=== PATIENT | male | born 1980 ===

== ENCOUNTER 2024-01-15 17:20 | Inpatient (IN) | payer BC ==
[~2024-01-15 17:20] MED LIST: LORazepam 2 MG/ML INJ ONE
[2024-01-15] MEDS ORDERED: LORazepam 2 MG/ML INJ ONE ×2 (21:31→23:11)
[2024-01-15] MEDS ORDERED: METOPROLOL TARTRATE 50 MG TAB ONE (21:33)
[2024-01-16] MEDS ORDERED: LORazepam 2 MG/ML INJ ONE ×9 (01:08→15:45)
[2024-01-16] MEDS ORDERED: chlordiazePOXIDE 25 MG CAP ONE ×2 (02:20→12:12)
[2024-01-16] MEDS ORDERED: MULTIVITAMINS, THERA 1 EACH TAB ONE (08:32)
[2024-01-16] MEDS ORDERED: lisinopriL 10 MG TAB ONE (08:33)
[2024-01-16] MEDS ORDERED: FUROSEMIDE 20 MG TAB ONE (08:33)
[2024-01-16] MEDS ORDERED: METOPROLOL TARTRATE 50 MG TAB ONE (08:33)
[2024-01-16] MEDS ORDERED: THIAMINE 100 MG TAB ONE (08:33)
[2024-01-16] MEDS ORDERED: amLODIPine 5 MG TAB ONE (08:33)
[2024-01-16] MEDS ORDERED: diphenhydrAMINE 50 MG/ML 1 ML VIAL ONE (12:12)
[2024-01-16] MEDS ORDERED: HALOPERIDOL LACTATE 5 MG/ML 1 ML VIAL ONE (12:12)
[2024-01-16] MEDS ORDERED: DEXMEDETOMIDINE/0.9% NACL(PMX) 400 MCG/100 ML IV ONE ×3 (14:31→21:02)
[2024-01-16] MEDS ORDERED: PANTOPRAZOLE 40 MG/10 ML VIAL ONE (16:27)
[2024-01-17] MEDS ORDERED: DEXMEDETOMIDINE/0.9% NACL(PMX) 400 MCG/100 ML IV ONE ×4 (01:01→14:52)
[2024-01-17] MEDS ORDERED: THIAMINE 100 MG TAB ONE (07:51)
[2024-01-17] MEDS ORDERED: PANTOPRAZOLE 40 MG/10 ML VIAL ONE (07:51)
[2024-01-17] MEDS ORDERED: chlordiazePOXIDE 25 MG CAP ONE ×4 (07:54→20:08)
[2024-01-17] MEDS ORDERED: FUROSEMIDE 20 MG TAB ONE (08:11)
[2024-01-17] MEDS ORDERED: lisinopriL 10 MG TAB ONE (08:50)
[2024-01-17] MEDS ORDERED: MULTIVITAMINS, THERA 1 EACH TAB ONE (08:52)
[2024-01-17] MEDS ORDERED: LORazepam 2 MG/ML INJ ONE ×3 (11:15→20:59)
[2024-01-17] MEDS ORDERED: amLODIPine 5 MG TAB ONE (14:16)
[2024-01-17] MEDS ORDERED: METOPROLOL TARTRATE 50 MG TAB ONE (20:05)
[2024-01-18] MEDS ORDERED: MELATONIN 3 MG TABLET ONE (00:14)
[2024-01-18] MEDS ORDERED: FUROSEMIDE 20 MG TAB ONE (07:33)
[2024-01-18] MEDS ORDERED: PANTOPRAZOLE 40 MG/10 ML VIAL ONE (07:33)
[2024-01-18] MEDS ORDERED: MULTIVITAMINS, THERA 1 EACH TAB ONE (07:33)
[2024-01-18] MEDS ORDERED: lisinopriL 10 MG TAB ONE (07:33)
[2024-01-18] MEDS ORDERED: THIAMINE 100 MG TAB ONE (07:33)
[2024-01-18] MEDS ORDERED: chlordiazePOXIDE 25 MG CAP ONE ×3 (07:35→20:46)
[2024-01-18] MEDS ORDERED: LORazepam 2 MG/ML INJ ONE (12:21)
[2024-01-18] MEDS ORDERED: METOPROLOL TARTRATE 50 MG TAB ONE (20:45)
[2024-01-19] MEDS ORDERED: PANTOPRAZOLE 40 MG/10 ML VIAL ONE (09:28)
[2024-01-19] MEDS ORDERED: chlordiazePOXIDE 25 MG CAP ONE (09:30)
[2024-01-19] MEDS ORDERED: amLODIPine 10 MG TAB ONE (09:31)
[2024-01-19] MEDS ORDERED: FUROSEMIDE 20 MG TAB ONE (09:32)
[2024-01-19] MEDS ORDERED: lisinopriL 10 MG TAB ONE (09:33)
[2024-01-19] MEDS ORDERED: MULTIVITAMINS, THERA 1 EACH TAB ONE (09:34)
[2024-01-19] MEDS ORDERED: THIAMINE 100 MG TAB ONE (09:35)
[2024-01-19] MEDS ORDERED: METOPROLOL TARTRATE 50 MG TAB ONE (09:36)
== END 2024-01-19 15:32 | disposition home or self-care (01) | DRG 897 ==
LOC: 6NMEDSUR 17:20
PROVIDERS: ADMIT Family Medicine; ATTEND Family Medicine
DX: F10.231 Alcohol dependence with withdrawal delirium (principal); E87.1 Hypo-osmolality and hyponatremia; I10 Essential (primary) hypertension; D69.6 Thrombocytopenia, unspecified; E66.9 Obesity, unspecified; G47.33 Obstructive sleep apnea (adult) (pediatric); Z79.899 Other long term (current) drug therapy
CPT/HCPCS: 80053; 80306; 80320; 81003; 83605; 83735; 84100; 85025; 99285